=== PATIENT | male | born 1945 | race Caucasian/White ===

== ENCOUNTER 2024-04-19 05:36 | Inpatient (IN) | payer MEDICARE, OTHER ==
[2024-04-19] MEDS ORDERED: Heparin 10,000 UNITS/ 10 ML VIAL ONE (06:31)
[2024-04-19] MEDS ORDERED: Verapamil 5 MG/2 ML VIAL ONE (06:31)
[2024-04-19] MEDS ORDERED: Midazolam HCl 2 mg/2 ml Vial ONE (06:31)
[2024-04-19] MEDS ORDERED: Nitroglycerin 50 MG/250 ML BOT 250 ML ONE (06:32)
[2024-04-19] MEDS ORDERED: Iopamidol 370 76% 100 ML VIAL ONE (08:31)
[2024-04-19] MEDS ORDERED: Sodium Chloride 0.9% 250 ML BAG (BAXTER) IVPB PRN (10:15)
[2024-04-19] MEDS ORDERED: Acetaminophen/Codeine 30-300mg Tablet PO PRN ×2 (10:15)
[2024-04-19] MEDS ORDERED: Nitroglycerin 0.4 MG TAB (25 Tab Bottle) SL PRN (10:15)
[2024-04-19 14:21] LABS: INR-International Normal Ratio 0.9; Prothrombin Time 12.6 sec (12.0-14.7)
[2024-04-19 14:22] LABS: PTT 27.1 sec (22.9-36.1)
[2024-04-19] MEDS: Rosuvastatin 20 MG TAB PO SCH (20:24)
[2024-04-20 04:48] LABS: Hematocrit 45.7 % (42.0-52.0); Hemoglobin 15.2 g/dL (14.0-18.0); Mean Corpuscular HGB CONC 33.3 g/dL (32.0-36.0); Mean Corpuscular Hemoglobin 30.3 pg (27.0-31.0); Mean Platelet Volume 11.3 fL (7.4-10.4); Platelet Count 188 10x3/uL (130-400); RBC Distribution Width 12.7 % (11.5-14.5); Red Blood Cell (RBC) Count 5.02 mill/uL (4.70-6.10)
[2024-04-20 05:04] LABS: Hemoglobin A1c 5.5 % (4.0-6.0)
[2024-04-20 05:07] LABS: ALT (SGPT) 25 U/L (8-55); AST (SGOT) 20 U/L (5-34); Albumin 4.2 g/dL (3.4-4.8); Alkaline Phosphatase 50 U/L (40-110); Anion Gap 15 mmol/L (10-20); BUN (Urea Nitrogen) 17 mg/dL (8.4-25.7); Bilirubin, Total 2.3 mg/dL (0.2-1.2); Calc. Creatinine Clearance 90 mL/min (70-130); Calcium 9.7 mg/dL (7.8-10.44); Carbon Dioxide 18 mmol/L (23-31); Cardiac Risk 2.9 (Less than 4.5); Chloride 108 mmol/L (98-107); Cholesterol 122 mg/dl (< 200 Desired); Estimated GFR 84; Glucose 106 mg/dL (83-110); HDL Cholesterol 42 mg/dL (>60 Neg Risk); LDL Cholesterol, Calculated 55 mg/dL; Potassium 4.3 mmol/L (3.5-5.1); Protein, Total 7.2 g/dL (5.8-8.1); Sodium 137 mmol/L (136-145); Triglycerides 125 mg/dL (Less than 150)
[2024-04-20] MEDS: Aspirin 81 mg Enteric Coated Tablet PO SCH (09:28)
[2024-04-20] MEDS: Lisinopril 10 MG TAB PO SCH (09:29)
[2024-04-22 05:16] LABS: Hematocrit 43.7 % (42.0-52.0); Hemoglobin 14.4 g/dL (14.0-18.0); Mean Corpuscular Hemoglobin 30.2 pg (27.0-31.0); Mean Corpuscular Volume 91.6 fL (78.0-98.0); Mean Platelet Volume 11.3 fL (7.4-10.4); Platelet Count 188 10x3/uL (130-400); RBC Distribution Width 12.6 % (11.5-14.5); Red Blood Cell (RBC) Count 4.77 mill/uL (4.70-6.10)
[2024-04-22 05:40] LABS: Anion Gap 14 mmol/L (10-20); BUN (Urea Nitrogen) 17 mg/dL (8.4-25.7); Calc. Creatinine Clearance 92 mL/min (70-130); Calcium 9.3 mg/dL (7.8-10.44); Carbon Dioxide 22 mmol/L (23-31); Chloride 106 mmol/L (98-107); Estimated GFR 86; Glucose 98 mg/dL (83-110); Magnesium 2.3 mg/dL (1.6-2.6); Potassium 4.2 mmol/L (3.5-5.1); Sodium 138 mmol/L (136-145)
[2024-04-22] MEDS ORDERED: EPINEPHrine 1 MG/ML VIAL ONE ×2 (06:49→11:55)
[2024-04-22] MEDS ORDERED: PHENYLEPHRINE-NS 100 MCG/ML 10 ML SYRINGE ONE (06:49)
[2024-04-22] MEDS ORDERED: Bupivacaine PF 0.5% 30 ML VIAL ONE ×2 (06:50→11:55)
[2024-04-22] MEDS ORDERED: Albumin 5% 500 ML ONE (06:50)
[2024-04-22] MEDS ORDERED: Heparin 10,000 UNITS/1 ML VIAL 30,000 UNITS in Sodium Chloride 0.9% 1,000 ML FS SCH (07:00)
[2024-04-22] MEDS ORDERED: Heparin 5,000 UNITS/ML VIAL ONE (08:15)
[2024-04-22] MEDS ORDERED: Magnesium 5 GM/10 ML VIAL ONE (08:15)
[2024-04-22] MEDS ORDERED: Sodium Bicarb 50 mEq/50 ML VIAL ONE (08:15)
[2024-04-22] MEDS ORDERED: Heparin 30,000 units/30 ml VIAL ONE (08:15)
[2024-04-22] MEDS ORDERED: Mannitol 12.5 GM/50 ML ONE (08:15)
[2024-04-22] MEDS ORDERED: Aminocaproic Acid 5 GM/20 ML VIAL ONE (08:15)
[2024-04-22] MEDS ORDERED: Vancomycin 1 GM VIAL ONE (08:15)
[2024-04-22] MEDS ORDERED: Calcium Chloride 1 GM/10 ML Abboject SYRINGE ONE ×2 (08:15→12:22)
[2024-04-22] MEDS ORDERED: Potassium Chloride 60 mEq (30 mL) VIAL ONE (08:15)
[2024-04-22] MEDS ORDERED: Cardioplegic Soln 1,000 ML BAG ONE (08:15)
[2024-04-22] MEDS ORDERED: Lidocaine 2% PF 100 mg/5 ml Syringe ONE (08:15)
[2024-04-22] MEDS ORDERED: Papaverine 60 MG/2 ML VIAL ONE (08:15)
[2024-04-22] MEDS ORDERED: Protamine Sulfate 250 MG/25 ML VIAL ONE (08:15)
[2024-04-22] MEDS ORDERED: Thrombin 5000 UNITS/5 ML VIAL ONE (08:15)
[2024-04-22] MEDS ORDERED: Clindamycin/D5W 900 mg/50 ml Premix Bag ONE (08:41)
[2024-04-22] MEDS ORDERED: CEFAZOLIN 2 GM VIAL ONE (08:45)
[2024-04-22] MEDS ORDERED: Sodium Chloride 0.9% 100 ML ONE (08:45)
[2024-04-22] MEDS ORDERED: CEFAZOLIN 2 GM in Sodium Chloride 0.9% 100 ML IVPB SCH (09:00)
[2024-04-22] MEDS ORDERED: Fentanyl 250 MCG/5 ML VIAL ONE ×2 (09:06→09:18)
[2024-04-22] MEDS ORDERED: Midazolam HCl 2 mg/2 ml Vial ONE ×2 (09:06→13:09)
[2024-04-22] MEDS ORDERED: Etomidate 40 MG (20 mL) VIAL ONE (09:07)
[2024-04-22] MEDS ORDERED: Rocuronium Bromide 10 MG/ML (10ML VIAL) ONE (09:22)
[2024-04-22] MEDS ORDERED: ePHEDrine Sulfate 50 MG/10 ML VIAL ONE (10:55)
[2024-04-22] MEDS ORDERED: Promethazine HCl 25 MG/ML VIAL IM PRN (13:03)
[2024-04-22] MEDS ORDERED: Acetaminophen 325 MG TAB PO PRN (13:03)
[2024-04-22] MEDS ORDERED: Mag-Al 1200 mg/1200 mg/30 ML UDCUP PO PRN (13:03)
[2024-04-22] MEDS ORDERED: Morphine 2 MG/ML VIAL SLOW IVP PRN (13:03)
[2024-04-22] MEDS ORDERED: Phenylephrine 40 MG in Sodium Chloride 0.9% 250 ML 250 ML IVPB PRN (13:03)
[2024-04-22] MEDS ORDERED: fentaNYL 50 mcg/mL 1 mL Vial SLOW IVP PRN (13:03)
[2024-04-22] MEDS ORDERED: niCARdipine 25 MG in Sodium Chloride 0.9% 250 ML 250 ML IVPB PRN (13:03)
[2024-04-22] MEDS ORDERED: hydrALAZINE 20 MG/ML VIAL SLOW IVP PRN (13:03)
[2024-04-22] MEDS ORDERED: traMADol HCl 50 MG TAB PO PRN (13:03)
[2024-04-22] MEDS ORDERED: Ondansetron PF 4 MG/2 ML Vial IVP PRN (13:03)
[2024-04-22] MEDS ORDERED: Bisacodyl 10 MG SUPP PR PRN (13:03)
[2024-04-22] MEDS ORDERED: HYDROmorphone 2 MG/ML VIAL ONE (13:09)
[2024-04-22] MEDS ORDERED: Dextrose 50% Abboject 50 ML SYRINGE SLOW IVP PRN (13:30)
[2024-04-22] MEDS ORDERED: INSULIN REGULAR IN 0.9 % NACL 100 UNITS in Premix 1 BAG IVPB SCH (13:30)
[2024-04-22] MEDS ORDERED: Glucagon 1 MG/ML KIT SC PRN (13:30)
[2024-04-22] MEDS ORDERED: Dextrose 5% in Water 1,000 ML IV PRN (13:30)
[2024-04-22] MEDS ORDERED: Phenylephrine 40 MG/NS 250 ML 40 MG in Premix 1 BAG IVPB PRN (13:34)
[2024-04-22 13:52] LABS: #Basophils Less than 0.03 10x3/uL (0.0-0.2); %Basophils 0.1 % (0.0-1.0); %Eosinophils 1.9 % (0.0-10.0); %Lymphocytes 18.6 % (21.0-51.0); %Monocytes 1.4 % (0.0-10.0); %Neutrophils 77.5 % (42.0-75.0); Hematocrit 38.9 % (42.0-52.0); Mean Corpuscular HGB CONC 33.4 g/dL (32.0-36.0); Mean Corpuscular Hemoglobin 30.7 pg (27.0-31.0); Mean Corpuscular Volume 91.7 fL (78.0-98.0); Mean Platelet Volume 10.7 fL (7.4-10.4); Platelet Count 128 10x3/uL (130-400); RBC Distribution Width 12.6 % (11.5-14.5); Red Blood Cell (RBC) Count 4.24 mill/uL (4.70-6.10)
[2024-04-22 13:53] LABS: Actual Bicarbonate (HCO3a) 18.6 mEq/L (22-28); Base Excess (BEa) -5.7 mEq/L (-2.0 to +3.0); CO2 Tension 33.3 mmHg (35.0-45.0); Calcium, Ionized (arterial) 1.29 mmol/L (1.12-1.30); Carboxyhemoglobin (COHb) 0.8 gm% (0.0-3.0); Hematocrit-ABG 40 % (42.0-52.0); Hemoglobin (Hb) 13.6 g/dL (14.0-18.0); O2 Tension (PaO2), arterial 207.6 mmHg (> 60.0); Potassium - ABG Lab 3.91 mmol/L (3.70-5.30); pH, Arterial 7.366 (7.35-7.45)
[2024-04-22 13:54] LABS: ALV-art Gradient 178.575 mmHg (0-20); Puncture Site Arterial Line
[2024-04-22 13:59] LABS: INR-International Normal Ratio 1.3; Prothrombin Time 15.9 sec (12.0-14.7)
[2024-04-22] MEDS: Albumin 5% 12.5 GM (250 mL) BOT IVPB PRN ×2 (14:00→21:40)
[2024-04-22] MEDS: NOREPINEPHRINE 8 MG/250 ML-D5W 250 ML IVPB PRN (14:00)
[2024-04-22 14:04] LABS: PTT 122.9 sec (22.9-36.1)
[2024-04-22] MEDS: Insulin Regular, Human 100 UNIT/ML 10 ML VIAL SC PRN (14:04)
[2024-04-22] MEDS: Post-Op Insulin Drip Protocol IVPB ONE (14:04)
[2024-04-22] MEDS: Magnesium 2 GM/50 ML(in water) 2 GM in Premix 1 BAG IVPB SCH (14:04)
[2024-04-22] MEDS: NS 0.9% w/ 20 MEQ KCL 1,000 ML IV SCH (14:05)
[2024-04-22 14:11] LABS: Anion Gap 14 mmol/L (10-20); BUN (Urea Nitrogen) 14 mg/dL (8.4-25.7); Calc. Creatinine Clearance 103 mL/min (70-130); Calcium 9.6 mg/dL (7.8-10.44); Carbon Dioxide 17 mmol/L (23-31); Chloride 112 mmol/L (98-107); Estimated GFR 89; Glucose 125 mg/dL (83-110); Sodium 139 mmol/L (136-145)
[2024-04-22 14:13] LABS: Burr Cells SLIGHT = 2-5 cells HPF (0-1); Platelet Adequacy Comment Platelets Decreased
[2024-04-22] MEDS: Potassium Chloride 20 MEQ (100 mL) BAG IVPB PRN (14:22)
[2024-04-22] MEDS: fentaNYL 50 mcg/mL 1 mL Vial SLOW IVP PRN (16:39)
[2024-04-22] MEDS: CEFAZOLIN 2 GM in Sodium Chloride 0.9% 100 ML IVPB SCH (16:40)
[2024-04-22 18:47] LABS: Actual Bicarbonate (HCO3a) 17.9 mEq/L (22-28); Base Excess (BEa) -7.9 mEq/L (-2.0 to +3.0); CO2 Tension 37.8 mmHg (35.0-45.0); Calcium, Ionized (arterial) 1.15 mmol/L (1.12-1.30); Carboxyhemoglobin (COHb) 0.4 gm% (0.0-3.0); Hematocrit-ABG 38 % (42.0-52.0); Hemoglobin (Hb) 12.8 g/dL (14.0-18.0); O2 Tension (PaO2), arterial 120.2 mmHg (> 60.0); Potassium - ABG Lab 3.78 mmol/L (3.70-5.30); pH, Arterial 7.294 (7.35-7.45)
[2024-04-22 18:49] LABS: Puncture Site LINE
[2024-04-22] MEDS: Sodium Bicarb 50 mEq/50 ML VIAL IVP SCH (19:05)
[2024-04-22 19:20] LABS: Hematocrit 38.3 % (42.0-52.0); Hemoglobin 12.8 g/dL (14.0-18.0)
[2024-04-22 19:37] LABS: Potassium 4.2 mmol/L (3.5-5.1)
[2024-04-22 20:03] LABS: Actual Bicarbonate (HCO3a) 21.4 mEq/L (22-28); Base Excess (BEa) -3.3 mEq/L (-2.0 to +3.0); CO2 Tension 37.4 mmHg (35.0-45.0); Calcium, Ionized (arterial) 1.17 mmol/L (1.12-1.30); Carboxyhemoglobin (COHb) 1.1 gm% (0.0-3.0); Hematocrit-ABG 37 % (42.0-52.0); Hemoglobin (Hb) 12.5 g/dL (14.0-18.0); O2 Tension (PaO2), arterial 104.8 mmHg (> 60.0); Potassium - ABG Lab 3.75 mmol/L (3.70-5.30); pH, Arterial 7.375 (7.35-7.45)
[2024-04-22] MEDS: Atorvastatin Calcium 20 MG TAB PO SCH (21:35)
[2024-04-22] MEDS: Famotidine/PF 20 mg/2ml Vial SLOW IVP SCH (21:40)
[2024-04-22 23:39] LABS: Puncture Site Arterial Line
[2024-04-23 05:06] LABS: #Basophils Less than 0.03 10x3/uL (0.0-0.2); %Basophils 0.2 % (0.0-1.0); %Lymphocytes 5.4 % (21.0-51.0); %Monocytes 6.9 % (0.0-10.0); Hematocrit 35.3 % (42.0-52.0); Hemoglobin 11.7 g/dL (14.0-18.0); Mean Corpuscular HGB CONC 33.1 g/dL (32.0-36.0); Mean Corpuscular Hemoglobin 30.6 pg (27.0-31.0); Mean Corpuscular Volume 92.4 fL (78.0-98.0); Mean Platelet Volume 11.8 fL (7.4-10.4); Platelet Count 166 10x3/uL (130-400); Red Blood Cell (RBC) Count 3.82 mill/uL (4.70-6.10)
[2024-04-23 05:10] VITALS: BMI 30.7
[2024-04-23 05:16] LABS: Anion Gap 13 mmol/L (10-20); BUN (Urea Nitrogen) 17 mg/dL (8.4-25.7); Calc. Creatinine Clearance 71 mL/min (70-130); Calcium 8.5 mg/dL (7.8-10.44); Carbon Dioxide 20 mmol/L (23-31); Chloride 113 mmol/L (98-107); Estimated GFR 61; Glucose 120 mg/dL (83-110); Magnesium 2.3 mg/dL (1.6-2.6); Potassium 4.3 mmol/L (3.5-5.1); Sodium 142 mmol/L (136-145)
[2024-04-23] MEDS: Aspirin Chewable 81 MG TAB PO SCH (08:28)
[2024-04-23] MEDS: Magnesium 2 GM/50 ML(in water) 2 GM in Premix 1 BAG IVPB SCH (08:28)
[2024-04-23] MEDS ORDERED: Lidocaine 4% Patch TD SCH (09:00)
[2024-04-23] MEDS: traMADol HCl 50 MG TAB PO PRN (10:32)
[2024-04-23] MEDS: Lidocaine 4% Patch TD SCH (10:33)
[2024-04-23] MEDS ORDERED: Insulin Glargine 30 UNITS/0.3 ML VIAL SC PRN (13:30)
[2024-04-23 14:47] VITALS: BMI 30.7
[2024-04-23] MEDS ORDERED: Simethicone Chewable 80 MG TAB PO PRN (18:52)
[2024-04-23] MEDS: Transdermal Patch Removal TOP SCH (21:48)
[2024-04-24 04:35] LABS: #Basophils Less than 0.03 10x3/uL (0.0-0.2); %Basophils 0.2 % (0.0-1.0); %Eosinophils 1.3 % (0.0-10.0); %Lymphocytes 6.3 % (21.0-51.0); %Neutrophils 84.6 % (42.0-75.0); Hemoglobin 10.3 g/dL (14.0-18.0); Mean Corpuscular HGB CONC 32.2 g/dL (32.0-36.0); Mean Corpuscular Hemoglobin 30.7 pg (27.0-31.0); Mean Corpuscular Volume 95.2 fL (78.0-98.0); Mean Platelet Volume 12.2 fL (7.4-10.4); Platelet Count 121 10x3/uL (130-400); RBC Distribution Width 13.5 % (11.5-14.5); Red Blood Cell (RBC) Count 3.36 mill/uL (4.70-6.10)
[2024-04-24 04:45] LABS: Phosphorus 2.3 mg/dL (2.3-4.7)
[2024-04-24 04:55] LABS: Anion Gap 12 mmol/L (10-20); BUN (Urea Nitrogen) 24 mg/dL (8.4-25.7); Calc. Creatinine Clearance 75 mL/min (70-130); Calcium 8.4 mg/dL (7.8-10.44); Carbon Dioxide 20 mmol/L (23-31); Chloride 112 mmol/L (98-107); Estimated GFR 65; Glucose 143 mg/dL (83-110); Magnesium 2.8 mg/dL (1.6-2.6); Potassium 4.7 mmol/L (3.5-5.1); Sodium 139 mmol/L (136-145)
[2024-04-24] MEDS ORDERED: Carvedilol 6.25 MG TAB PO SCH (08:00)
[2024-04-24] MEDS ORDERED: Nitroglycerin 0.4 MG TAB (25 Tab Bottle) SL PRN (08:03)
[2024-04-24] MEDS ORDERED: Artificial Tear Ophth Sol 15 ML BOT EA EYE PRN (08:03)
[2024-04-24] MEDS ORDERED: Mineral Oil ENEMA PR PRN (08:03)
[2024-04-24] MEDS: Furosemide 40 MG (4 mL) VIAL SLOW IVP SCH (10:56)
[2024-04-24] MEDS: Senokot S 8.6-50 MG TAB PO SCH (10:57)
[2024-04-24 15:53] LABS: Bacteria/HPF None Seen HPF (None Seen); Bilirubin Negative (Negative); Blood, Urine 2+ (Negative); CAUTI Indications for Culture Alt mental st,lethar; Clarity Turbid (Clear); Glucose, Urine (Dipstick) Normal (Negative); Ketone, Urine Negative (Negative); Leukocyte Negative Leu/uL (Negative); Nitrite Negative (Negative); Protein, Urine (Dipstick) 20 mg/dL (Neg-Trace); Squamous Epithelial None Seen HPF (0-3); Urobilinogen Normal mg/dL (Less than 2); WBC/HPF 0-3 HPF (0-3)
[2024-04-24 16:02] LABS: Urine Culture Reflex No No
[2024-04-24] MEDS: Ipratropium/Albuterol 3 ML NEB NEB PRN (19:52)
[2024-04-24] MEDS: Melatonin 3 MG TAB PO PRN (20:48)
[2024-04-24] MEDS: Bisacodyl 5 MG TAB PO PRN (20:48)
[2024-04-25] MEDS: methylPREDNISolone Sod Succ/PF 125 MG/2 ML VIAL IVP SCH (04:54)
[2024-04-25 05:03] LABS: Anion Gap 14 mmol/L (10-20); BUN (Urea Nitrogen) 28 mg/dL (8.4-25.7); Calc. Creatinine Clearance 74 mL/min (70-130); Calcium 8.8 mg/dL (7.8-10.44); Carbon Dioxide 18 mmol/L (23-31); Chloride 107 mmol/L (98-107); Estimated GFR 62; Glucose 136 mg/dL (83-110); Magnesium 2.4 mg/dL (1.6-2.6); Potassium 3.9 mmol/L (3.5-5.1); Sodium 135 mmol/L (136-145)
[2024-04-25 05:05] LABS: Phosphorus 1.9 mg/dL (2.3-4.7)
[2024-04-25 05:23] LABS: #Basophils Less than 0.03 10x3/uL (0.0-0.2); %Basophils 0.2 % (0.0-1.0); %Eosinophils 1.5 % (0.0-10.0); %Lymphocytes 12.3 % (21.0-51.0); %Monocytes 8.8 % (0.0-10.0); %Neutrophils 76.6 % (42.0-75.0); Hematocrit 32.5 % (42.0-52.0); Hemoglobin 10.5 g/dL (14.0-18.0); Mean Corpuscular HGB CONC 32.3 g/dL (32.0-36.0); Mean Corpuscular Hemoglobin 30.6 pg (27.0-31.0); Mean Corpuscular Volume 94.8 fL (78.0-98.0); Mean Platelet Volume 11.9 fL (7.4-10.4); Platelet Count 121 10x3/uL (130-400); RBC Distribution Width 13.1 % (11.5-14.5); Red Blood Cell (RBC) Count 3.43 mill/uL (4.70-6.10)
[2024-04-25] MEDS: Ipratropium/Albuterol 3 ML NEB NEB SCH (07:48)
[2024-04-25] MEDS: Potassium Phosphate 22 MMOL in Sodium Chloride 0.9% 250 ML 250 ML IVPB SCH (08:05)
[2024-04-25] MEDS: Potassium Chloride 20 MEQ TAB PO SCH (08:06)
[2024-04-25] MEDS: Famotidine 20 MG TAB PO SCH (08:07)
[2024-04-25] MEDS: Lisinopril 10 MG TAB PO SCH (08:07)
[2024-04-25] MEDS: Thiamine 100 MG TAB PO SCH (17:28)
[2024-04-25] MEDS: BEER 1 CAN PO SCH (21:37)
[2024-04-26 05:19] LABS: #Basophils Less than 0.03 10x3/uL (0.0-0.2); #Eosinphils Less than 0.03 10x3/uL (0.0-0.7); %Basophils 0.2 % (0.0-1.0); %Monocytes 8.2 % (0.0-10.0); %Neutrophils 86.1 % (42.0-75.0); Hematocrit 30.5 % (42.0-52.0); Hemoglobin 10.1 g/dL (14.0-18.0); Mean Corpuscular HGB CONC 33.1 g/dL (32.0-36.0); Mean Corpuscular Hemoglobin 29.6 pg (27.0-31.0); Mean Corpuscular Volume 89.4 fL (78.0-98.0); Mean Platelet Volume 12.2 fL (7.4-10.4); Platelet Count 157 10x3/uL (130-400); RBC Distribution Width 13.2 % (11.5-14.5); Red Blood Cell (RBC) Count 3.41 mill/uL (4.70-6.10)
[2024-04-26 05:27] LABS: Anion Gap 13 mmol/L (10-20); BUN (Urea Nitrogen) 31 mg/dL (8.4-25.7); Calc. Creatinine Clearance 76 mL/min (70-130); Calcium 8.8 mg/dL (7.8-10.44); Carbon Dioxide 22 mmol/L (23-31); Chloride 106 mmol/L (98-107); Estimated GFR 64; Glucose 159 mg/dL (83-110); Magnesium 2.3 mg/dL (1.6-2.6); Sodium 137 mmol/L (136-145)
[2024-04-26] MEDS: Thiamine 100 MG TAB PO SCH (08:15)
[2024-04-26] MEDS: guaiFENesin ER 600 MG TAB PO SCH (08:15)
[2024-04-26] MEDS: Furosemide 20 MG TAB PO SCH (08:15)
[2024-04-26] MEDS ORDERED: Lisinopril 10 MG TAB PO SCH (09:00)
[2024-04-26] MEDS: BEER 1 CAN PO SCH (17:11)
[2024-04-26] MEDS: Guaifenesin DM 100-10/5 ML UDCUP PO PRN (20:34)
[2024-04-27 04:22] LABS: #Basophils Less than 0.03 10x3/uL (0.0-0.2); %Basophils 0.2 % (0.0-1.0); %Eosinophils 4.4 % (0.0-10.0); %Lymphocytes 16.2 % (21.0-51.0); %Monocytes 13.9 % (0.0-10.0); %Neutrophils 64.9 % (42.0-75.0); Hematocrit 31.1 % (42.0-52.0); Hemoglobin 10.2 g/dL (14.0-18.0); Mean Corpuscular HGB CONC 32.8 g/dL (32.0-36.0); Mean Corpuscular Hemoglobin 30.3 pg (27.0-31.0); Mean Corpuscular Volume 92.3 fL (78.0-98.0); Mean Platelet Volume 11.1 fL (7.4-10.4); Platelet Count 175 10x3/uL (130-400); RBC Distribution Width 13.5 % (11.5-14.5); Red Blood Cell (RBC) Count 3.37 mill/uL (4.70-6.10)
[2024-04-27 04:44] LABS: Anion Gap 13 mmol/L (10-20); BUN (Urea Nitrogen) 30 mg/dL (8.4-25.7); Calc. Creatinine Clearance 72 mL/min (70-130); Carbon Dioxide 24 mmol/L (23-31); Chloride 104 mmol/L (98-107); Estimated GFR 61; Glucose 112 mg/dL (83-110); Magnesium 2.3 mg/dL (1.6-2.6); Potassium 3.9 mmol/L (3.5-5.1); Sodium 137 mmol/L (136-145)
[2024-04-27] MEDS: dilTIAZem 25 MG/5 ML VIAL SLOW IVP SCH (20:55)
[2024-04-27] MEDS: diphenhydrAMINE 25 MG CAP PO PRN (21:07)
[2024-04-27] MEDS: BEER 1 CAN PO SCH (21:07)
[2024-04-27] MEDS: Diltiazem HCl/D5W 125 ML IVPB SCH (21:21)
[2024-04-28] MEDS: Lorazepam 0.5 MG TAB PO PRN (00:10)
[2024-04-28 05:13] LABS: #Basophils 0.03 10x3/uL (0.0-0.2); %Basophils 0.3 % (0.0-1.0); %Eosinophils 5.5 % (0.0-10.0); %Lymphocytes 18.3 % (21.0-51.0); %Monocytes 14.7 % (0.0-10.0); %Neutrophils 60.4 % (42.0-75.0); Hematocrit 33.2 % (42.0-52.0); Mean Corpuscular HGB CONC 33.1 g/dL (32.0-36.0); Mean Corpuscular Hemoglobin 30.5 pg (27.0-31.0); Platelet Count 222 10x3/uL (130-400); RBC Distribution Width 13.5 % (11.5-14.5); Red Blood Cell (RBC) Count 3.61 mill/uL (4.70-6.10)
[2024-04-28 05:32] LABS: Anion Gap 18 mmol/L (10-20); BUN (Urea Nitrogen) 25 mg/dL (8.4-25.7); Calc. Creatinine Clearance 71 mL/min (70-130); Carbon Dioxide 22 mmol/L (23-31); Chloride 101 mmol/L (98-107); Estimated GFR 61; Glucose 137 mg/dL (83-110); Magnesium 2.1 mg/dL (1.6-2.6); Potassium 4.1 mmol/L (3.5-5.1); Sodium 137 mmol/L (136-145)
[2024-04-28] MEDS: Amiodarone 200 MG TAB PO SCH ×2 (10:24→20:34)
[2024-04-28] MEDS: Furosemide 20 MG TAB PO SCH (13:52)
[2024-04-29 06:09] LABS: #Basophils 0.03 10x3/uL (0.0-0.2); %Basophils 0.4 % (0.0-1.0); %Lymphocytes 22.1 % (21.0-51.0); %Neutrophils 58.7 % (42.0-75.0); Anion Gap 17 mmol/L (10-20); BUN (Urea Nitrogen) 24 mg/dL (8.4-25.7); Calc. Creatinine Clearance 69 mL/min (70-130); Calcium 9.2 mg/dL (7.8-10.44); Carbon Dioxide 25 mmol/L (23-31); Chloride 99 mmol/L (98-107); Estimated GFR 59; Glucose 119 mg/dL (83-110); Hemoglobin 11.4 g/dL (14.0-18.0); Magnesium 2.3 mg/dL (1.6-2.6); Mean Corpuscular HGB CONC 32.6 g/dL (32.0-36.0); Mean Corpuscular Hemoglobin 29.6 pg (27.0-31.0); Mean Corpuscular Volume 90.9 fL (78.0-98.0); Mean Platelet Volume 12.6 fL (7.4-10.4); Platelet Count 248 10x3/uL (130-400); Potassium 3.8 mmol/L (3.5-5.1); RBC Distribution Width 13.7 % (11.5-14.5); Red Blood Cell (RBC) Count 3.85 mill/uL (4.70-6.10); Sodium 137 mmol/L (136-145)
[2024-04-29] MEDS ORDERED: Ipratropium/Albuterol 3 ML NEB NEB PRN (07:18)
[2024-04-29 16:05] VITALS: BP 140/71; TEMP 97.9
[2024-04-30 12:37] LABS: Actual Bicarbonate (HCO3a) 21.9 mEq/L (22-28); Analyzer IN Cardio OR; Base Excess (BEa) -2.8 mEq/L (-2.0 to +3.0); CO2 Tension 37.9 mmHg (35.0-45.0); Calcium, Ionized (arterial) 1.12 mmol/L (1.12-1.30); Carboxyhemoglobin (COHb) 0.7 gm% (0.0-3.0); Hematocrit-ABG 41 % (42.0-52.0); Hemoglobin (Hb) 14.1 g/dL (14.0-18.0); O2 Tension (PaO2), arterial 495.3 mmHg (> 60.0); Potassium - ABG Lab 4.03 mmol/L (3.70-5.30); Puncture Site Arterial Line
[2024-04-30 12:38] LABS: Actual Bicarbonate (HCO3a) 23.6 mEq/L (22-28); Analyzer IN Cardio OR; Base Excess (BEa) -1.4 mEq/L (-2.0 to +3.0); CO2 Tension 40.9 mmHg (35.0-45.0); Calcium, Ionized (arterial) 1.03 mmol/L (1.12-1.30); Carboxyhemoglobin (COHb) 0.3 gm% (0.0-3.0); Hematocrit-ABG 32 % (42.0-52.0); Hemoglobin (Hb) 10.9 g/dL (14.0-18.0); O2 Tension (PaO2), arterial 393.3 mmHg (> 60.0); Potassium - ABG Lab 5.09 mmol/L (3.70-5.30); pH, Arterial 7.379 (7.35-7.45)
[2024-04-30 12:38] LABS: Analyzer IN Cardio OR; Base Excess (BEa) -3.1 mEq/L (-2.0 to +3.0); CO2 Tension 39.6 mmHg (35.0-45.0); Calcium, Ionized (arterial) 1.13 mmol/L (1.12-1.30); Carboxyhemoglobin (COHb) 0.6 gm% (0.0-3.0); Hematocrit-ABG 42 % (42.0-52.0); Hemoglobin (Hb) 14.2 g/dL (14.0-18.0); O2 Tension (PaO2), arterial 513.1 mmHg (> 60.0); Potassium - ABG Lab 4.43 mmol/L (3.70-5.30); pH, Arterial 7.363 (7.35-7.45)
[2024-04-30 12:38] LABS: Actual Bicarbonate (HCO3a) 23.2 mEq/L (22-28); Analyzer IN Cardio OR; Base Excess (BEa) -1.8 mEq/L (-2.0 to +3.0); CO2 Tension 40.6 mmHg (35.0-45.0); Calcium, Ionized (arterial) 1.03 mmol/L (1.12-1.30); Carboxyhemoglobin (COHb) 0.1 gm% (0.0-3.0); Hematocrit-ABG 33 % (42.0-52.0); Hemoglobin (Hb) 11.3 g/dL (14.0-18.0); O2 Tension (PaO2), arterial 396.4 mmHg (> 60.0); Potassium - ABG Lab 5.34 mmol/L (3.70-5.30); pH, Arterial 7.375 (7.35-7.45)
[2024-04-30 12:39] LABS: Analyzer IN Cardio OR; Base Excess (BEa) -3.5 mEq/L (-2.0 to +3.0); Carboxyhemoglobin (COHb) 0.2 gm% (0.0-3.0); Hematocrit-ABG 33 % (42.0-52.0); Hemoglobin (Hb) 11.3 g/dL (14.0-18.0); O2 Tension (PaO2), arterial 512.4 mmHg (> 60.0); pH, Arterial 7.384 (7.35-7.45)
[2024-04-30 12:39] LABS: Puncture Site Arterial Line
[2024-04-30 12:39] LABS: Puncture Site Arterial Line
[2024-04-30 12:39] LABS: Puncture Site Arterial Line
[2024-04-30 12:40] LABS: Calcium, Ionized (arterial) 2.18 mmol/L (1.12-1.30); Puncture Site Arterial Line
== END 2024-04-29 17:31 | disposition home or self-care (01) | DRG 233 ==
LOC: SDC 05:36 → 2NO 12:29 → CCU 04-22 08:04 → 2NO 04-24 09:34
PROVIDERS: ADMIT Internal Medicine Cardiovascular Disease; ATTEND Internal Medicine Cardiovascular Disease
PROC: 4A023N7 Measurement of Cardiac Sampling and Pressure, Left Heart, Percutaneous Approach (ICD-10-PCS; principal; 2024-04-19)
PROC: B2111ZZ Fluoroscopy of Multiple Coronary Arteries using Low Osmolar Contrast (ICD-10-PCS; 2024-04-19)
PROC: B2151ZZ Fluoroscopy of Left Heart using Low Osmolar Contrast (ICD-10-PCS; 2024-04-19)
PROC: 021009W Bypass Coronary Artery, One Artery from Aorta with Autologous Venous Tissue, Open Approach (ICD-10-PCS; 2024-04-22)
PROC: 02100Z9 Bypass Coronary Artery, One Artery from Left Internal Mammary, Open Approach (ICD-10-PCS; 2024-04-22)
PROC: 06BQ4ZZ Excision of Left Saphenous Vein, Percutaneous Endoscopic Approach (ICD-10-PCS; 2024-04-22)
PROC: 02L70CK Occlusion of Left Atrial Appendage with Extraluminal Device, Open Approach (ICD-10-PCS; 2024-04-22)
PROC: 5A1221Z Performance of Cardiac Output, Continuous (ICD-10-PCS; 2024-04-22)
PROC: 4A133R1 Monitoring of Arterial Saturation, Peripheral, Percutaneous Approach (ICD-10-PCS; 2024-04-22)
PROC: 3E033XZ Introduction of Vasopressor into Peripheral Vein, Percutaneous Approach (ICD-10-PCS; 2024-04-22)
PROC: 30233J1 Transfusion of Nonautologous Serum Albumin into Peripheral Vein, Percutaneous Approach (ICD-10-PCS; 2024-04-22)
DX: I25.10 Atherosclerotic heart disease of native coronary artery without angina pectoris (principal); G93.41 Metabolic encephalopathy; I50.22 Chronic systolic (congestive) heart failure; E87.20 Acidosis, unspecified; I48.91 Unspecified atrial fibrillation; I11.0 Hypertensive heart disease with heart failure; R73.9 Hyperglycemia, unspecified; D69.6 Thrombocytopenia, unspecified; E78.5 Hyperlipidemia, unspecified; Z90.49 Acquired absence of other specified parts of digestive tract; Z98.890 Other specified postprocedural states; Z79.82 Long term (current) use of aspirin; Z79.899 Other long term (current) drug therapy; Z79.4 Long term (current) use of insulin; Z87.891 Personal history of nicotine dependence
CPT/HCPCS: 36415; 36416; 36430; 71045; 80048; 80053; 80061; 82805; 83036; 83735; 84100; 85025; 85027; 85610; 85730; 86850; 86900; 86901; 93005; 93010; 93306; 93458; 93798; 94002; 94150; 94640; 99152; 99153; A4311; A4648; C1713; C1751; C1769; C1894; J0171; J0665; J1170; J1642; J1644; J1815; J1940; J2001; J2150; J2250; J2440; J2720; J2919; J3010; J3370; J3475; J3480; J3490; J7050; J7620; P9045; Q9967; S0017

== ENCOUNTER 2024-07-25 05:40 | Emergency (ER) | payer MEDICARE ==
[2024-07-25 06:20] LABS: #Basophils 0.04 10x3/uL (0.0-0.2); %Basophils 0.6 % (0.0-1.0); %Eosinophils 2.4 % (0.0-10.0); %Lymphocytes 22.8 % (21.0-51.0); %Monocytes 9.7 % (0.0-10.0); %Neutrophils 64.2 % (42.0-75.0); Hematocrit 38.8 % (42.0-52.0); Hemoglobin 12.4 g/dL (14.0-18.0); Mean Corpuscular Hemoglobin 27.5 pg (27.0-31.0); Mean Platelet Volume 11.3 fL (7.4-10.4); Platelet Count 187 10x3/uL (130-400); RBC Distribution Width 14.5 % (11.5-14.5); Red Blood Cell (RBC) Count 4.51 mill/uL (4.70-6.10)
[2024-07-25 06:36] LABS: ALT (SGPT) 22 U/L (8-55); AST (SGOT) 23 U/L (5-34); Albumin 4.2 g/dL (3.4-4.8); Alkaline Phosphatase 100 U/L (40-110); Anion Gap 15 mmol/L (10-20); BUN (Urea Nitrogen) 28 mg/dL (8.4-25.7); Bilirubin, Total 1.4 mg/dL (0.2-1.2); Calc. Creatinine Clearance 0 mL/min (70-130); Calcium 9.4 mg/dL (7.8-10.44); Carbon Dioxide 23 mmol/L (23-31); Chloride 105 mmol/L (98-107); Estimated GFR 54; Globulin 3.5 g/dL (2.4-3.5); Glucose 136 mg/dL (83-110); Potassium 3.9 mmol/L (3.5-5.1); Protein, Total 7.7 g/dL (5.8-8.1); Sodium 139 mmol/L (136-145)
[2024-07-25 07:14] LABS: Troponin I Less than 0.010 ng/mL (< 0.028)
[2024-07-25] MEDS ORDERED: Furosemide 40 MG (4 mL) VIAL ONE (07:19)
== END 2024-07-25 08:35 | disposition short-term general hospital (02) ==
LOC: ERS 05:40
DX: R06.02 Shortness of breath (principal); I11.0 Hypertensive heart disease with heart failure; I50.9 Heart failure, unspecified; Z87.891 Personal history of nicotine dependence
CPT/HCPCS: 71045; 80053; 83880; 84484; 85025; 93005; J1940; 96374

== ENCOUNTER 2025-04-30 15:54 | Emergency (ER) | payer MEDICARE ==
[2025-04-30 17:12] LABS: #Basophils 0.04 10x3/uL (0.0-0.2); #Eosinophils 0.12 10x3/uL (0.0-0.7); #Monocytes 0.43 10x3/uL (0.11-0.59); #Neutrophils 3.81 10x3/uL (1.40-6.50); %Basophils 0.7 % (0.0-1.0); %Eosinophils 2.0 % (0.0-10.0); %Lymphocytes 26.6 % (21.0-51.0); %Monocytes 7.2 % (0.0-10.0); %Neutrophils 63.3 % (42.0-75.0); Hematocrit 42.9 % (42.0-52.0); Hemoglobin 14.3 g/dL (14.0-18.0); Mean Corpuscular Hemoglobin 29.7 pg (27.0-31.0); Mean Corpuscular Volume 89.0 fL (78.0-98.0); Platelet Count 191 10x3/uL (130-400); Red Blood Cell (RBC) Count 4.82 mill/uL (4.70-6.10); White Blood Cell (WBC) Count 6.01 10x3/uL (4.8-10.8)
[2025-04-30 17:33] LABS: ALT (SGPT) 37 U/L (Less than 45); AST (SGOT) 35 U/L (11-34); Albumin 4.4 g/dL (3.1-4.5); Alkaline Phosphatase 56 U/L (40-110); Anion Gap 18 mmol/L (10-20); BUN (Urea Nitrogen) 18 mg/dL (8.4-25.7); Bilirubin, Total 2.2 mg/dL (0.3-1.2); Calc. Creatinine Clearance 0 mL/min (70-130); Calcium 9.8 mg/dL (7.8-10.44); Carbon Dioxide 23 mmol/L (23-31); Chloride 104 mmol/L (98-107); Globulin 3.0 g/dL (2.4-3.5); Glucose 106 mg/dL (83-110); Potassium 4.2 mmol/L (3.5-5.1); Sodium 141 mmol/L (136-145)
== END 2025-04-30 20:12 | disposition home or self-care (01) ==
LOC: ERS 15:54
DX: R07.9 Chest pain, unspecified (principal); I25.10 Atherosclerotic heart disease of native coronary artery without angina pectoris; I10 Essential (primary) hypertension; E78.00 Pure hypercholesterolemia, unspecified; Z95.1 Presence of aortocoronary bypass graft; Z87.891 Personal history of nicotine dependence; Z79.82 Long term (current) use of aspirin; Z79.899 Other long term (current) drug therapy
CPT/HCPCS: 71045; 80053; 83880; 84484; 85025; 93005